=== PATIENT | female | born 1985 | race Hispanic/Latino ===

== ENCOUNTER 2017-12-12 18:19 | Emergency (ER) | payer OTHER | END 2017-12-12 19:12 | disposition home or self-care (01) | LOC: ERS 18:19 | DX: F41.9 Anxiety disorder, unspecified (principal) | CPT/HCPCS: 99283 ==

== ENCOUNTER 2018-01-10 14:55 | Emergency (ER) | payer OTHER ==
[2018-01-10] MEDS ORDERED: Naproxen 500 MG TAB ONE (15:09)
[2018-01-10] MEDS ORDERED: Acetaminophen 325 MG TAB ONE (15:09)
== END 2018-01-10 15:17 | disposition home or self-care (01) ==
LOC: ERS 14:55
DX: S90.121A Contusion of right lesser toe(s) without damage to nail, initial encounter (principal); J45.909 Unspecified asthma, uncomplicated; F32.9 Major depressive disorder, single episode, unspecified; V03.90XA Pedestrian on foot injured in collision with car, pick-up truck or van, unspecified whether traffic or nontraffic accident, initial encounter
CPT/HCPCS: 99283